=== PATIENT | female | born 1980 | race Hispanic/Latino ===

== ENCOUNTER 2017-10-16 12:44 | Outpatient (RCR) | payer BC ==
[~2017-10-16 12:44] MED LIST: JANUVIA100 MG PO; LISINOPRIL20 MG PO; METFORMIN HCL500 M2 PO; NEXIUM40 MG PO; NORCO 5-325 TA1 EACH PO
== END 2017-11-01 ==
LOC: PT 12:44
PROVIDERS: ATTEND Specialist
DX: M54.16 Radiculopathy, lumbar region (principal); S46.011D Strain of muscle(s) and tendon(s) of the rotator cuff of right shoulder, subsequent encounter; M25.511 Pain in right shoulder; M25.611 Stiffness of right shoulder, not elsewhere classified; M54.5 Low back pain; M79.651 Pain in right thigh; M79.661 Pain in right lower leg; M62.81 Muscle weakness (generalized)

== ENCOUNTER → 2019-04-11 | Outpatient (CLI) | payer BC ==
[~2019-04-11] MED LIST changes: +IOPAMIDOL 370 MG/ML 200 ML INFUS..BTL INJ ONE; +SODIUM CHLORIDE 0.9% 50ML 50 ML ONE
[2019-04-11 10:31] LABS: BLOOD UREA NITROGEN 16 mg/dL (8-26); BUN/CREATININE RATIO 53 (6-25); EST GLOMERULAR FILTRATION RATE > 60 ML/MIN (60-)
[2019-04-11 10:32] LABS: CREATININE, SERUM 0.3 mg/dL (0.6-1.1)
--- NOTE | 2019-04-11 11:34 | Diagnostic Imaging Report ---
EXAM: CT Abdomen WITH intravenous contrast INDICATION: Left upper quadrant abdominal pain COMPARISON: None. TECHNIQUE: Abdomen was scanned utilizing a multidetector helical scanner from the lung base to the acetabular roof after administration of IV contrast. Coronal and sagittal reformations were obtained. Routine protocol was performed. Scan was performed during portal venous phase. IV CONTRAST: 100mL of Isovue 370 ORAL CONTRAST: Gastrografin COMPLICATIONS: None RADIATION DOSE: Total DLP: 674.0 mGy*cm Dose modulation, iterative reconstruction, and/or weight based adjustment of the mA/kV was utilized to reduce the radiation dose to as low as reasonably achievable. FINDINGS: LOWER THORAX: Normal. HEPATOBILIARY: Severe hepatic steatosis. No focal hepatic lesions. No biliary ductal dilatation. Status post cholecystectomy. SPLEEN: No splenomegaly. PANCREAS: No focal masses or ductal dilatation. ADRENALS: No adrenal nodules. KIDNEYS/URETERS: No hydronephrosis, stones, or solid mass lesions. PERITONEUM / RETROPERITONEUM: No free air or fluid. Approximately 1 cm hypoattenuating retroperitoneal nodule posterior to the cecum, of uncertain clinical significance. LYMPH NODES: No lymphadenopathy. VESSELS: Scattered atherosclerotic calcifications of the nonaneurysmal abdominal aorta and major branches. GI TRACT: No distention or wall thickening. BONES AND SOFT TISSUES: Unremarkable. IMPRESSION: Severe hepatic steatosis. Otherwise, no acute findings in abdomen. Signed by: Williams Rodrigues MD on 04/11/2019 11:31 AM
== END ==
LOC: CT 09:54
PROVIDERS: ATTEND Family Medicine
DX: E11.65 Type 2 diabetes mellitus with hyperglycemia (principal)
CPT/HCPCS: 36415; 74160; 82565; 84520; Q9967

== ENCOUNTER → 2020-04-09 | Outpatient (CLI) | payer BC ==
[~2020-04-09] MED LIST changes: -IOPAMIDOL 370 MG/ML 200 ML INFUS..BTL INJ ONE; -SODIUM CHLORIDE 0.9% 50ML 50 ML ONE
[2020-04-09 09:33] LABS: ALANINE AMINOTRANSFERASE 66 IU/L (0-55); ALBUMIN 3.8 g/dL (3.5-5.0); ALBUMIN/GLOBULIN RATIO 0.8 (0.8-2.0); ALKALINE PHOSPHATASE 55 IU/L (40-150); ANION GAP 21.7 mmol/L (8-16); BLOOD UREA NITROGEN 21 mg/dL (7-26); BUN/CREATININE RATIO 25 (6-25); CALCIUM 9.9 mg/dL (8.4-10.2); CARBON DIOXIDE 13 mmol/L (22-29); CHLORIDE 99 mmol/L (98-107); CHOL/HDL RATIO 27.7 (3.0-3.6); CHOLESTEROL 498 MD/DL (0-199); CREATININE, SERUM 0.83 mg/dL (0.57-1.11); EST GLOMERULAR FILTRATION RATE > 60 ML/MIN (60-); GLUCOSE 314 mg/dL (74-118); HDL CHOLESTEROL 18 MG/DL (40-60); POTASSIUM 4.7 mmol/L (3.5-5.1); SODIUM 129 mmol/L (136-145)
[2020-04-09 09:50] LABS: TRIGLYCERIDES 3721 MG/DL (0-149)
== END ==
LOC: LAB 08:39
PROVIDERS: ATTEND Internal Medicine
DX: E11.65 Type 2 diabetes mellitus with hyperglycemia (principal); E78.1 Pure hyperglyceridemia; I10 Essential (primary) hypertension; M25.511 Pain in right shoulder; Z68.36 Body mass index [BMI] 36.0-36.9, adult
CPT/HCPCS: 36415; 80053; 80061; 83036

== ENCOUNTER → 2020-10-15 | Outpatient (CLI) | payer OTHER ==
[~2020-10-15] MED LIST changes: +COVID-19 VACC, MRNA(MODERNA)/PF 100 MCG/0.5 ML VIAL IM ONE
== END ==
LOC: VACCPMC 13:02
DX: Z23 Encounter for immunization (principal); Z20.822 Contact with and (suspected) exposure to COVID-19
CPT/HCPCS: 91301

== ENCOUNTER → 2020-11-08 | Outpatient (CLI) | payer OTHER | END | disposition home or self-care (01) | LOC: VACCPMC 09:07 | DX: Z23 Encounter for immunization (principal); Z20.822 Contact with and (suspected) exposure to COVID-19 | CPT/HCPCS: 91301 ==

== ENCOUNTER → 2021-07-05 | Outpatient (CLI) | payer OTHER | LOC: VACCPMC 09:00 | DX: Z23 Encounter for immunization (principal); Z20.822 Contact with and (suspected) exposure to COVID-19 ==

== ENCOUNTER 2021-11-22 13:56 | Emergency (ER) | payer BC, OTHER ==
[~2021-11-22] VITALS: Ht 172.7 cm; Wt 104.5 kg
[~2021-11-22 13:56] MED LIST changes: -COVID-19 VACC, MRNA(MODERNA)/PF 100 MCG/0.5 ML VIAL IM ONE
[2021-11-22] MEDS ORDERED: GLIMEPIRIDE2 MG PO (14:16)
[2021-11-22] MEDS ORDERED: LEVEMIR FL100 UNIT/1 SC (14:16)
[2021-11-22] MEDS ORDERED: KETOROLAC TROMETHAMINE 60 MG/2 ML VIAL IM ONE (15:15)
[2021-11-22] MEDS ORDERED: NAPROSYN500 MG PO (15:26)
[2021-11-22] MEDS ORDERED: CYCLOBENZAPRINE10 MG PO (15:27)
[2021-11-22] MEDS ORDERED: ULTRAM 50MG50 MG PO (15:28)
== END 2021-11-22 15:54 | disposition home or self-care (01) ==
LOC: FSED 14:03
DX: M54.50 Low back pain, unspecified (principal); E11.9 Type 2 diabetes mellitus without complications; I10 Essential (primary) hypertension
CPT/HCPCS: 81003; 96372; 99283; J1885

== ENCOUNTER 2022-05-30 06:44 | Inpatient (IN) | payer BC ==
[2022-05-25 08:23] LABS: ANION GAP 16.4 mmol/L (8-16); CALCIUM 9.7 mg/dL (8.4-10.2); CREATININE, SERUM 0.71 mg/dL (0.57-1.11); POTASSIUM 4.4 mmol/L (3.5-5.1)
[~2022-05-30] VITALS: Ht 170.2 cm; Wt 99.8 kg
[~2022-05-30 06:44] MED LIST changes: +CYCLOBENZAPRINE10 MG PO; +FENOFIBRATE134 MG PO; +GLIMEPIRIDE2 MG PO; +LEVEMIR FL100 UNIT/1 SC; +NAPROSYN500 MG PO; +TRULICITY0.75 MG/0. SC; +ULTRAM 50MG50 MG PO
[2022-05-30] MEDS ORDERED: HYDROCODONE/APAP 7.5MG-325MG 1 EA TAB PO PRN (07:30)
[2022-05-30] MEDS: SODIUM CHLORIDE 0.9% 1000ML 1,000 ML IV SCH ×3 (07:30→21:49)
[2022-05-30] MEDS ORDERED: FIBRIN FROZEN 2 ML SPRAY.GEL TOP ONE (08:00)
[2022-05-30] MEDS ORDERED: BUPIVACAINE 0.25% 30ML SDV ONE (08:47)
[2022-05-30 12:00] VITALS: BP 149/71
[2022-05-30] MEDS ORDERED: INSULIN REGULAR, HUMAN 100 UNIT/1 ML ONE ×2 (12:01→12:02)
[2022-05-30] MEDS ORDERED: FENTANYL CITRATE/PF 100MCG/2 ML INJ ONE ×2 (12:05→12:26)
[2022-05-30] MEDS ORDERED: ONDANSETRON HCL INJ 2MG/ML 2ML 2 MG/ML VIAL ONE ×2 (12:05→12:22)
[2022-05-30] MEDS ORDERED: METOCLOPRAMIDE HCL 10 MG/2ML VIAL ONE (12:05)
[2022-05-30] MEDS ORDERED: LIDOCAINE HCL 2% LOCAL INJ 5 ML SDV VIAL INJ ONE (12:22)
[2022-05-30] MEDS ORDERED: ACETAMINOPHEN 1000 MG/100 ML IV ONE (12:22)
[2022-05-30] MEDS ORDERED: PROPOFOL IV EMULSION 10 MG/ML 20 ML VIAL ONE (12:22)
[2022-05-30] MEDS ORDERED: SEVOFLURANE INHAL SOLN 250 ML PEN BTL ONE (12:22)
[2022-05-30] MEDS ORDERED: ROCURONIUM BROMIDE 10 MG/ML 5ML VIAL IV ONE (12:22)
[2022-05-30] MEDS ORDERED: POVIDONE IODINE 0.05% 0.05 % ML PO ONE (12:22)
[2022-05-30] MEDS ORDERED: SUGAMMADEX SODIUM 200 MG/2 ML VIAL IV ONE (12:22)
[2022-05-30] MEDS ORDERED: MIDAZOLAM HCL 2 MG/2 ML VIAL ONE (12:26)
[2022-05-30] MEDS ORDERED: KETAMINE HCL INJ 50 MG/ML 10 ML VIAL ONE (12:26)
[2022-05-30 12:46] VITALS: BP 148/72
[2022-05-30 13:00] VITALS: BP 148/72
[2022-05-30] MEDS: ONDANSETRON HCL INJ 2MG/ML 2ML 2 MG/ML VIAL IV PRN ×2 (13:48→18:55)
[2022-05-30] MEDS: Morphine 2mg Syringe 2 MG/ML SYR IV PRN ×3 (13:48→23:00)
[2022-05-30] MEDS ORDERED: SCOPOLAMINE 1 MG PATCH TOP SCH (15:00)
[2022-05-30] MEDS ORDERED: INSULIN GLARGINE 100 UNITS/ML VIAL SQ SCH (17:00)
[2022-05-30] MEDS ORDERED: INSULIN DETEMIR 30 UNIT SC SCH (17:00)
[2022-05-30 17:02] VITALS: BP 126/64
[2022-05-30 20:00] VITALS: BP 145/75
[2022-05-30 21:00] VITALS: BP 145/75
[2022-05-30] MEDS ORDERED: INSULIN DETEMIR 65 UNIT SC SCH (21:00)
[2022-05-30] MEDS: ENOXAPARIN SOD INJ 40 MG/0.4 ML SYR SC SCH (21:49)
[2022-05-31] VITALS: BP 148/76
[2022-05-31] MEDS: ONDANSETRON HCL INJ 2MG/ML 2ML 2 MG/ML VIAL IV PRN (02:14)
[2022-05-31] MEDS: Morphine 2mg Syringe 2 MG/ML SYR IV PRN (03:02)
[2022-05-31 04:00] VITALS: BP 140/75
[2022-05-31 06:37] LABS: BASOPHILS % 0.3 % (0.0-1.0); HEMATOCRIT 40.6 % (34.2-44.1); HEMOGLOBIN 12.1 g/dL (12.0-16.0); LYMPHOCYTES # (AUTO) 0.9 (1.0-3.2); LYMPHOCYTES % 10.2 % (18.0-39.1); MEAN CORPUSCULAR HEMOGLOBIN 26.7 pg (28-32); MEAN CORPUSCULAR HGB CONC 29.8 g/dL (31-35); MEAN CORPUSCULAR VOLUME 89.4 fL (81-99); MONOCYTES # (AUTO) 0.6 (0.2-0.8); MONOCYTES % 6.6 % (4.4-11.3); NEUTROPHILS # (AUTO) 7.6 (2.1-6.9); NEUTROPHILS % 82.3 % (38.7-80.0); PLATELET COUNT 214 x10e3/uL (140-360); RED BLOOD COUNT 4.54 x10e6/uL (3.6-5.1); RED CELL DISTRIBUTION WIDTH 13.4 % (11.7-14.4)
[2022-05-31] MEDS: SODIUM CHLORIDE 0.9% 1000ML 1,000 ML IV SCH (06:56)
[2022-05-31 07:08] LABS: ALBUMIN 3.7 g/dL (3.5-5.0); ALBUMIN/GLOBULIN RATIO 1.3 (0.8-2.0); ANION GAP 19.9 mmol/L (8-16); CALCIUM 9.1 mg/dL (8.4-10.2); CREATININE, SERUM 0.69 mg/dL (0.57-1.11); MAGNESIUM 1.6 MG/DL (1.3-2.1); PHOSPHORUS 2.5 MG/DL (2.3-4.7); POTASSIUM 3.9 mmol/L (3.5-5.1)
[2022-05-31 08:03] VITALS: BP 144/73
[2022-05-31 08:46] VITALS: BP 144/73
[2022-05-31] MEDS: ENOXAPARIN SOD INJ 40 MG/0.4 ML SYR SC SCH (09:08)
== END 2022-05-31 10:32 | disposition home or self-care (01) | DRG 621 ==
LOC: OR 06:44 → PACU V 07:21 → MED/SURG2 12:52
PROVIDERS: ADMIT Internal Medicine; ATTEND Internal Medicine
PROC: 0D164ZA Bypass Stomach to Jejunum, Percutaneous Endoscopic Approach (ICD-10-PCS; principal; 2022-05-30 09:22)
PROC: 0BQT4ZZ Repair Diaphragm, Percutaneous Endoscopic Approach (ICD-10-PCS; 2022-05-30 09:22)
DX: E66.01 Morbid (severe) obesity due to excess calories (principal); K44.9 Diaphragmatic hernia without obstruction or gangrene; I10 Essential (primary) hypertension; E11.9 Type 2 diabetes mellitus without complications; K21.9 Gastro-esophageal reflux disease without esophagitis; E78.1 Pure hyperglyceridemia; Z90.49 Acquired absence of other specified parts of digestive tract; Z90.710 Acquired absence of both cervix and uterus; Z88.5 Allergy status to narcotic agent; Z91.013 Allergy to seafood; K76.0 Fatty (change of) liver, not elsewhere classified; Z68.34 Body mass index [BMI] 34.0-34.9, adult
CPT/HCPCS: 36415; 80048; 80053; 82948; 83735; 84100; 85025; 93005; 94799; C1713; J0690; J1650; J1815; J1817; J2001; J2250; J2270; J2405; J2765; J3010; J7030